=== PATIENT | female | born 1950 | race Caucasian/White ===

== ENCOUNTER 2022-07-06 16:50 | Emergency (ER) | payer MEDICARE, SELFPAY ==
[2022-07-06 17:01] VITALS: BP 164/84; PULSE 83; RESP 19; TEMP 36.6; O2SAT 96; BMI 36.3
--- NOTE | 2022-07-06 17:03 | ED.FALL ---
HPI - Fall General Chief Complaint: Fall Stated Complaint: Fall, Shoulder inj Time Seen by Provider: 07/06/22 16:59 History of Present Illness HPI Narrative: Patient is a 72-year-old female presenting today with left shoulder pain. She says she walks in the door tripped over rug and landed on her left side on her shoulder. No head injury, no loss of consciousness not on antiplatelet or anticoagulation medication. She did take Tylenol earlier today. She is no chest pain or shortness breath. She is not dizzy lightheaded or having palpitations. Seems like a mechanical fall. Related Data Allergies Allergy/AdvReac Type Severity Reaction Status Date / Time No Known Drug Allergies Allergy Verified 07/06/22 17:01 Review of Systems Review of Systems Narrative: GENERAL: Denies chills,fever HEENT: Denies throat pain RESPIRATORY: Denies dyspnea, cough, wheezing CARDIOVASCULAR: Denies chest pain, palpitations GASTROINTESTINAL: Denies nausea, vomiting MUSCULOSKELETAL: See HP [Right/Left] eye was treated with proparacaine, stained with fluorescein. No dye uptake. No foreign body. SKIN: No rash, no laceration, no pruritus NEUROLOGIC: Denies weakness, dizziness, headache, numbness 8 point review of systems is negative except for those stated above and HPI Patient History Social History Smoking Status: Never smoker Exam Initial Vital Signs Initial Vital Signs: Vital Signs Temperature 97.9 F 07/06/22 17:01 Pulse Rate 83 07/06/22 17:01 Respiratory Rate 19 07/06/22 17:01 Blood Pressure 164/84 H 07/06/22 17:01 Pulse Oximetry 96 07/06/22 17:01 Oxygen Delivery Method 07/06/22 17:01 GENERAL: Alert pleasant 72-year-old female HEENT: Head atraumatic,EOMI, pupils reactive, face symmetric, [moist] mucous membranes CARDIOVASCULAR: Regular rate and rhythm without murmurs, rubs or gallops. RESPIRATORY: Breath sounds equal bilaterally, no wheezes rales or rhonchi. ABDOMEN: Soft, nontender. Normoactive bowel sounds all 4 quadrants. No guarding or rebound. EXTREMITIES: Normal range of motion, no clubbing or edema. Neurovascularly intact NEUROLOGICAL: Alert and oriented x4.Normal gait and speech. SKIN: Warm, dry, no laceration, no petechiae, no rashes or lesions. Course Orders Ordered: ED Orders 07/06/22 17:04 XR shoulder LT min 2V Stat 07/06/22 17:09 Chest [XR chest 2V] Stat Vital Signs Vital signs: Vital Signs - 8 hr 07/06/22 17:01 Temperature 97.9 F Pulse Rate 83 Respiratory Rate 19 Blood Pressure 164/84 H Pulse Oximetry 96 Oxygen Delivery Method Room Air MDM - Fall Imaging Data Chest x-ray: Radiologist's Impression: XRay Report Signed Patient: Kasandra Morgan MR#: [id number] : 1950 Acct:[id number] Age/Sex: 72 / F Date of Service: 07/06/22 Loc: ED Accession Number: [id number] ?? Procedure: XR chest 2V Ordering Provider: Emi Guido D.O. PROCEDURE:? XR CHEST 2V ? INDICATIONS:? fall ? TECHNIQUE:? 2 views of the chest were acquired.? ? COMPARISON:? None. ? FINDINGS:? ? Surgical changes and devices:? None.? ? Lungs and pleura:? Lungs are clear.? No pleural effusions or pneumothorax.? ? Mediastinum:? Mediastinal contours are normal.? Heart size is normal.? ? Bones and chest wall:? No suspicious bony abnormalities.? Soft tissues appear unremarkable.? ? IMPRESSION:? No acute radiographic abnormality. ? Dictated by: Jose Alfredo Hernandez M.D. on 07/06/2022 at 16:31 ? ? Extremity x-ray #1: Radiologist's Impression: Signed Patient: Kasandra Morgan MR#: [id number] : 1950 Acct:[id number] Age/Sex: 72 / F Date of Service: 07/06/22 Loc: ED Accession Number: [id number] ?? Procedure: XR shoulder LT min 2V Ordering Provider: Emi Guido D.O. PROCEDURE:? XR SHOULDER LT MIN 2V ? INDICATIONS:? Fall with suspected injury ? TECHNIQUE:? 3 views of the shoulder were acquired.? ? COMPARISON:? None. ? FINDINGS:? ? Bones:? Mild arthrosis. No displaced fracture or definite dislocation. Suspected Y-view obliquity ,consider axillary view. ? ? Soft tissues:? No suspicious soft tissue calcifications.? ? IMPRESSION:? No acute fracture. Consider axillary view to evaluate GH alignment if needed. If there is concern for occult injury, consider cross-sectional imaging. ? ? Dictated by: Jose Alfredo Hernandez M.D. on 07/06/2022 at 16:33 ? ? Approved by: Jose Alfredo Hernandez M.D. on 07/06/2022 at 16:37 ? MDM Narrative Medical decision making narrative: Patient is 72-year-old female presents with left shoulder pain after a fall. She did not have any other symptoms prior to fall she tripped over rug suggesting a mechanical fall. She is not on any blood thinners no evidence of head trauma she nausea vomiting or weakness suggest need for head CT. She does have pain to palpation but x-rays fortunately negative for fracture. After reexamination she actually is able to move it a little bit more. At this time recommend supportive care only. Differential diagnosis includes fracture versus sprain versus tear Discharge Plan Departure Patient Disposition: Home Clinical Impression: Shoulder sprain Instructions: DI for Shoulder Pain Activity Restrictions/Additional Instructions: *You have been diagnosed with left shoulder strain/contusion *What to do: Increase activity as tolerated. Ice 20-30 minutes at a time. Be sure to move a little bit each day. If it hurts too much then stop. *Continue to take medications as directed Tylenol 650 mg every 4-6 hours if needed for [id number] *Follow up with your primary care provider in 2-3 days or call [phone] *Return to ER if you should have increasing pain numbness tingling weakness or any new, worsening or concerning symptoms Visit Report Forms: Patient Portal/API
--- NOTE | 2022-07-06 17:04 | DI.RAD.S_ITS ---
PROCEDURE: XR SHOULDER LT MIN 2V INDICATIONS: Fall with suspected injury TECHNIQUE: 3 views of the shoulder were acquired. COMPARISON: None. FINDINGS: Bones: Mild arthrosis. No displaced fracture or definite dislocation. Suspected Y-view obliquity ,consider axillary view. Soft tissues: No suspicious soft tissue calcifications. IMPRESSION: No acute fracture. Consider axillary view to evaluate GH alignment if needed. If there is concern for occult injury, consider cross-sectional imaging. Dictated by: Jose Alfredo Hernandez M.D. on 07/06/2022 at 16:33 Approved by: Jose Alfredo Hernandez M.D. on 07/06/2022 at 16:37
--- NOTE | 2022-07-06 17:09 | DI.RAD.S_ITS ---
PROCEDURE: XR CHEST 2V INDICATIONS: fall TECHNIQUE: 2 views of the chest were acquired. COMPARISON: None. FINDINGS: Surgical changes and devices: None. Lungs and pleura: Lungs are clear. No pleural effusions or pneumothorax. Mediastinum: Mediastinal contours are normal. Heart size is normal. Bones and chest wall: No suspicious bony abnormalities. Soft tissues appear unremarkable. IMPRESSION: No acute radiographic abnormality. Dictated by: Jose Alfredo Hernandez M.D. on 07/06/2022 at 16:31 Approved by: Jose Alfredo Hernandez M.D. on 07/06/2022 at 16:32
== END 2022-07-06 18:08 | disposition home or self-care (01) ==
PROVIDERS: Emergency Provider Emergency Medicine
DX: S43.402A Unspecified sprain of left shoulder joint, initial encounter (principal); W01.0XXA Fall on same level from slipping, tripping and stumbling without subsequent striking against object, initial encounter
CPT/HCPCS: 71046; 73030; 99283